=== PATIENT | female | born 1955 | race Caucasian/White ===

== ENCOUNTER → 2019-08-12 | Day surgery (SDC) | payer BC ==
[~2019-08-12] MED LIST: BUPROPION150 M3 PO; JANUVIA100 MG PO; METFORMIN HCL1000 MG PO; NO MEDS; PERCOCET 5/325M1 TAB PO; SG ASA LOW81 M1 PO; TUSSIONEX1 ML OR; ZITHROMAX250 MG OR
== END | disposition home or self-care (01) | DRG 694 ==
PROC: 0TP98DZ Removal of Intraluminal Device from Ureter, Via Natural or Artificial Opening Endoscopic (ICD-10-PCS; principal; 2019-08-12)
DX: N20.1 Calculus of ureter (principal); E11.9 Type 2 diabetes mellitus without complications; F17.210 Nicotine dependence, cigarettes, uncomplicated; E66.9 Obesity, unspecified; Z68.31 Body mass index [BMI] 31.0-31.9, adult; Z86.718 Personal history of other venous thrombosis and embolism; Z87.442 Personal history of urinary calculi
CPT/HCPCS: C1769; Q9967